=== PATIENT | male | born 1935 | race Caucasian/White ===

== ENCOUNTER → 2016-05-15 | Outpatient (CLI) | payer OTHER, BC ==
--- NOTE | 2016-05-15 13:32 | DX ---
3 Views Left Shoulder. Clinical Indications: Left shoulder pain and an 81-year-old male with no report of recent specific tr auma. Findings: The humeral head is normally located in the glenoid fossa. No fracture is identified. The bone alignment is normal. Minimal degenerative changes are noted. Impression: Negative for acute abnormality. If symptoms persist, MRI could be considered for further evaluation.
== END ==
LOC: BMCIMAGING 12:09
PROVIDERS: ATTEND Internal Medicine
DX: M25.512 Pain in left shoulder (principal)

== ENCOUNTER → 2016-07-08 | Outpatient (CLI) | payer OTHER, BC | LOC: BMCIMAGING 14:45 | PROVIDERS: ATTEND Podiatrist Foot & Ankle Surgery | DX: S92.901A Unspecified fracture of right foot, initial encounter for closed fracture (principal) ==

== ENCOUNTER → 2016-07-13 | Outpatient (CLI) | payer OTHER, BC | LOC: FIMAGING 08:51 | PROVIDERS: ATTEND Podiatrist Foot & Ankle Surgery | DX: S93.491A Sprain of other ligament of right ankle, initial encounter (principal); S93.411A Sprain of calcaneofibular ligament of right ankle, initial encounter; S86.311A Strain of muscle(s) and tendon(s) of peroneal muscle group at lower leg level, right leg, initial encounter ==

== ENCOUNTER 2016-07-19 07:23 | Day surgery (SDC) | payer OTHER, BC ==
[2016-07-19] MEDS ORDERED: BUPIVACAINE 0.5% 30 ML SDV ONE (07:39)
[2016-07-19] MEDS ORDERED: LIDOCAINE 2% 5 ML SDV ONE ×2 (07:40→09:09)
[2016-07-19] MEDS ORDERED: ceFAZolin 1 GM/5 ML SYR ONE (07:40)
[2016-07-19] MEDS ORDERED: MIDAZOLAM 2 MG/2 ML VIAL ONE (08:58)
[2016-07-19] MEDS ORDERED: CEFAZOLIN 1 GM/DEXTROSE/50 ML BAG IV ONE (09:02)
[2016-07-19] MEDS ORDERED: PROPOFOL/EMULSION 500 MG/50 ML BOTTLE IV ONE (09:08)
[2016-07-19] MEDS ORDERED: fentaNYL 100 MCG/2 ML INJ ONE (09:08)
[2016-07-19] MEDS ORDERED: LR 1,000 ML IV ONE (09:17)
[2016-07-19] MEDS ORDERED: CHLORHEXIDINE GLUC HIBICLENS 118 ML BTL TP ONE (09:30)
--- NOTE | 2016-07-19 12:07 | GOP ---
[f rep st] OPERATIVE REPORT DATE OF OPERATION: 07/19/2016 SURGEON: Danay De La Paz DPM ANESTHESIA: Chris Schwarz DO. Local with monitored anesthesia care. PREOPERATIVE DIAGNOSIS: 1. Right peroneus longus rupture. 2. Right os peroneum fracture with distraction. 3. Right peroneus brevis tendon tear. POSTOPERATIVE DIAGNOSIS: 1. Right peroneus longus rupture. 2. Right os peroneum fracture with distraction. 3. Right peroneus brevis tendon tear. PROCEDURE PERFORMED: 1. Right peroneus longus tendon repair. 2. Right peroneus brevis tendon repair. 3. Os peroneum fracture fragment excision. FINDINGS: ESTIMATED BLOOD LOSS: Minimal. DESCRIPTION OF PROCEDURE: Under mild sedation, the patient was brought into the operating room and placed on the operating table in supine position. Following IV sedation, local anesthesia was obtai stephanie about the right foot using 5 cc of 2% lidocaine plain and 25 cc of 0.5% Marcaine plain. The sabiha t was then scrubbed, prepped, and draped in the usual aseptic manner. A tourniquet was placed prior to applying the drapes. The foot was then exsanguinated and tourniquet inflated to 275 mmHg. Atte ntion was then directed to the lateral aspect of the right ankle along the peroneal tendons. An inc ision was made along the lateral calcaneus over the peroneal tendons. The incision was deepened thr ough subcutaneous tissue with care taken to identify and retract all vital neurovascular structures. All bleeders were cauterized as necessary. The peroneal tendon sheath was then incised, and the p eroneus longus identified and evaluated. The fracture fragments were noted and found to be fresh wi th hematoma within the tendon sheath. The os peroneum fracture fragments were then incised and fred conchis from the peroneus longus tendon. The hematoma within the tendon sheath was irrigated and debrid ed. At this point, #2 FiberWire was used to grab hold of the distal aspect of the peroneus longus a s it transversed under the plantar aspect of the cuboid. This was done in a Krackow-type suture. A separate FiberWire was then used again with a Krackow suture technique along the more proximal aspe ct of the peroneus longus tendon. The tendon ends were then brought together and tightened with neva e approximation of the peroneus longus tendon rupture. This was reinforced with additional #2 Fiber Wire and 2-0 Vicryl. The wound was irrigated with copious sterile saline/Ancef irrigation. The per oneus longus tendon was then evaluated and found to have a longitudinal split tear. This was repair ed in a tubularization-type technique with 2-0 Vicryl. The wound was irrigated with copious sterile saline/Ancef irrigation. The peroneal tendon sheath was then repaired with 2-0 and 3-0 Vicryl. Th e subcuticular layer was repaired with 3-0 Vicryl and 4-0 Monocryl. The skin was then repaired with 4-0 Prolene in a horizontal suture technique. The incision was dressed with Xeroform, 4 x 4 gauze, Larry, cast padding, posterior splint, Kiko wrap. Tourniquet was deflated at 85 minutes. A prompt hyperemic response was noted to all digits of the right foot. The patient was then transferred to the recovery room with vital signs stable and vascular status in tact. Following a period of postoperative monitoring, the patient will be discharged home, advised to ice and elevate his foot. He is advised to keep the dressing clean, dry, and intact. He will ic e and elevate his foot. He is nonweightbearing on his foot for the next 3-4 weeks with the use of c rutches or the Roll-A-Bout walker. He will follow up with me in 1 week for a dressing change. INJECTABLES: 5 cc of 2% lidocaine plain. 25 cc of 0.5% Marcaine plain. MATERIALS: #2 FiberWire, 2-0 Vicryl, 3-0 Vicryl, 4-0 Prolene. HEMOSTASIS: Pneumatic thigh tourniquet at 275 mmHg for 85 minutes. /[id number]/MODL
== END 2016-07-19 13:10 | disposition home or self-care (01) ==
LOC: FSGY 07:23
PROVIDERS: ATTEND Podiatrist Foot & Ankle Surgery
PROC: 0QTJ0ZZ Resection of Right Fibula, Open Approach (ICD-10-PCS; principal; 2016-07-19 09:00)
PROC: 0LSW0ZZ Reposition Left Foot Tendon, Open Approach (ICD-10-PCS; principal; 2016-07-19 09:00)
DX: S86.311A Strain of muscle(s) and tendon(s) of peroneal muscle group at lower leg level, right leg, initial encounter (principal); S92.811A Other fracture of right foot, initial encounter for closed fracture; X50.1XXA Overexertion from prolonged static or awkward postures, initial encounter; Y93.89 Activity, other specified; M25.371 Other instability, right ankle; M65.9 Synovitis and tenosynovitis, unspecified; M72.2 Plantar fascial fibromatosis; M19.079 Primary osteoarthritis, unspecified ankle and foot; M76.61 Achilles tendinitis, right leg; E78.5 Hyperlipidemia, unspecified; E03.9 Hypothyroidism, unspecified
CPT/HCPCS: J0690; J2250; J2704; J3010

== ENCOUNTER 2017-10-06 12:11 | Emergency (ER) | payer OTHER, BC ==
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
[2017-10-06 17:49] VITALS: BP 156/91
== END 2017-10-06 17:49 | disposition home or self-care (01) ==
DX: S46.911A Strain of unspecified muscle, fascia and tendon at shoulder and upper arm level, right arm, initial encounter (principal); S41.111A Laceration without foreign body of right upper arm, initial encounter; Z79.82 Long term (current) use of aspirin; X50.9XXA Other and unspecified overexertion or strenuous movements or postures, initial encounter; Y99.8 Other external cause status; Y93.89 Activity, other specified

== ENCOUNTER → 2018-02-10 | Outpatient (CLI) | payer OTHER, BC ==
[~2018-02-10] MED LIST: IOPAMIDOL (ISOVUE-300) 150 ML BTL ONE
== END ==
LOC: FIMAGING 13:18
PROVIDERS: ATTEND Urology
DX: R31.9 Hematuria, unspecified (principal); N20.0 Calculus of kidney; N40.0 Benign prostatic hyperplasia without lower urinary tract symptoms; Z85.46 Personal history of malignant neoplasm of prostate
CPT/HCPCS: 74178; Q9967